=== PATIENT | female | born 1985 | race Caucasian/White ===

== ENCOUNTER 2016-09-02 17:14 | Inpatient (IN) | payer OTHER ==
[~2016-09-02] VITALS: Ht 162.6 cm; Wt 65.9 kg
[2016-09-02] MEDS ORDERED: OXYTOCIN 30U/ 0.9% NaCL 500ML 500 ML ONE ×2 (17:44→20:15)
[2016-09-02] MEDS ORDERED: NEWBORN KIT ONE (17:44)
[2016-09-02] MEDS ORDERED: MISOPROSTOL 200 MCG TABLET ONE ×2 (17:44→19:01)
[2016-09-02] MEDS ORDERED: LIDOCAINE 1%, 20ML ONE ×2 (17:44→19:01)
[2016-09-02] MEDS ORDERED: OXYTOCIN 10 UNITS/ML, 1ML ONE (17:44)
[2016-09-02] MEDS ORDERED: D5%-LACTATED RINGERS 1,000 ML IV SCH (17:47)
[2016-09-02] MEDS ORDERED: OXYTOCIN 30U/ 0.9% NaCL 500ML 500 ML IV ONE (17:47)
[2016-09-02] MEDS ORDERED: LACTATED RINGERS 1,000 ML IV SCH (17:47)
[2016-09-02] MEDS ORDERED: AMPICILLIN 2 GM in SODIUM CHLORIDE 0.9% 100 ML IVPB STA (17:47)
[2016-09-02] MEDS ORDERED: TERBUTALINE 1 MG/ML, 1ML IVPush PRN (18:00)
[2016-09-02] MEDS ORDERED: FENTANYL PF 100 MCG/2ML IVPush PRN (18:00)
[2016-09-02] MEDS ORDERED: FENTANYL PF 100 MCG/2ML IV PRN (18:00)
[2016-09-02 18:11] LABS: HEMOGLOBIN 13.7 g/dL (11.7-16.4)
[2016-09-02] MEDS ORDERED: PLEASE ENTER HEIGHT AND WEIGHT MC SCH (18:30)
[2016-09-02] MEDS ORDERED: IBUPROFEN 600 MG TABLET ONE (19:48)
[2016-09-02] MEDS: IBUPROFEN 600 MG TABLET PO PRN (19:56)
[2016-09-02] MEDS ORDERED: DOCUSATE 100 MG CAPSULE PO PRN (20:00)
[2016-09-02] MEDS ORDERED: METHYLERGONOVINE 0.2 MG/ML IM PRN (20:00)
[2016-09-02] MEDS ORDERED: HYDROcodone/APAP 5/325 TABLET PO PRN (20:00)
[2016-09-02] MEDS ORDERED: CARBOPROST TROMETHAMINE 250 MCG/ML, 1ML IM PRN (20:00)
[2016-09-02] MEDS ORDERED: ONDANSETRON 2MG/ML, 2ML IV PRN (20:00)
[2016-09-02] MEDS ORDERED: MISOPROSTOL 200 MCG TABLET PR PRN (20:00)
[2016-09-02] MEDS ORDERED: CALCIUM CARBONATE 500 MG TAB.CHEW PO PRN (20:00)
[2016-09-02] MEDS: OXYTOCIN 30U/ 0.9% NaCL 500ML 500 ML IV SCH (20:18)
[2016-09-02 21:40] VITALS: BP 105/61
[2016-09-02] MEDS ORDERED: AMPICILLIN 1 GM in SODIUM CHLORIDE 0.9% 50 ML IVPB SCH (22:00)
[2016-09-03 01:43] VITALS: BP 112/74
[2016-09-03] MEDS: OXYTOCIN 30U/ 0.9% NaCL 500ML 500 ML IV SCH (05:43)
[2016-09-03 06:10] VITALS: BP 102/68
[2016-09-03 08:14] LABS: HEMOGLOBIN 12.3 g/dL (11.7-16.4)
[2016-09-03] MEDS ORDERED: PRENATAL VIT/IRON/FA 1 EACH TABLET PO SCH (09:00)
[2016-09-03 13:48] VITALS: BP 104/72
[2016-09-03] MEDS ORDERED: IBUP-1222 PO (15:07)
[2016-09-03] MEDS: IBUPROFEN 600 MG TABLET PO PRN (15:08)
== END 2016-09-03 15:33 | disposition home or self-care (01) | DRG 775 ==
LOC: LDOP 17:14 → LDIP 17:47 → 2NW 21:30
PROVIDERS: ADMIT Obstetrics & Gynecology; ATTEND Obstetrics & Gynecology
PROC: 10E0XZZ Delivery of Products of Conception, External Approach (ICD-10-PCS; principal; 2016-09-02)
PROC: 10907ZC Drainage of Amniotic Fluid, Therapeutic from Products of Conception, Via Natural or Artificial Opening (ICD-10-PCS; 2016-09-02)
DX: O99.824 Streptococcus B carrier state complicating childbirth (principal); O36.63X0 Maternal care for excessive fetal growth, third trimester, not applicable or unspecified; O77.0 Labor and delivery complicated by meconium in amniotic fluid; Z37.0 Single live birth; Z3A.40 40 weeks gestation of pregnancy; Z80.3 Family history of malignant neoplasm of breast; Z85.828 Personal history of other malignant neoplasm of skin; Z90.89 Acquired absence of other organs
CPT/HCPCS: 36415; 85025; 86850; 86900; J2590; J7120